=== PATIENT | female | born 1980 | race Caucasian/White ===

== ENCOUNTER 2023-10-14 17:42 | Emergency (ER) | payer MEDICAID, SELFPAY ==
--- NOTE | ~2023-10-14 | XR_ITS ---
EXAMINATION: XR HIP, RIGHT CLINICAL INFORMATION: Right hip pain COMPARISON: None available. TECHNIQUE: Two views of the right hip. 1 view AP pelvis FINDINGS: AP pelvis: There is normal symmetry of bilateral hip joints and SI joints. Rest of the pelvic bones are unremarkable. The soft tissues are normal. Right hip: AP and frog-leg views right hip reveals normal right hip joint space without bony erosive changes, loose bodies or periarticular spurring. Soft tissues are unremarkable. XR/XR hip RT w [id number] IMPRESSION: Unremarkable AP pelvis and right hip exam
[2023-10-14 18:19] VITALS: BP 124/97; PULSE 145; RESP 16; TEMP 37.1; O2SAT 98; BMI 18.9
--- NOTE | 2023-10-14 18:34 | ECG_ITS ---
Test Reason : TACHYCARDIA Blood Pressure : / mmHG Vent. Rate : 143 BPM Atrial Rate : 143 BPM P-R Int : 116 ms QRS Dur : 070 ms QT Int : 282 ms P-R-T Axes : 060 -19 033 degrees QTc Int : 435 ms Sinus tachycardia Otherwise normal ECG No previous ECGs available Referred By: Generic ED Physician Electronically Signed By:MICHELET BILLINGS MD
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
[2023-10-14 19:26] LABS: MANUAL DIFF FLAG NO
[2023-10-14 19:37] LABS: COVID-19 Test Positive (Negative); IDNOW Serial# 08D9AD1C
[2023-10-14 19:42] LABS: Alanine Aminotransferase 21 U/L (0-31); Alkaline Phosphatase 60 U/L (39-117); Anion Gap 17 (12-20); Aspartate Amino Transferase 30 U/L (5-31); Bilirubin Total 0.2 mg/dL (0.0-1.0); Blood Urea Nitrogen 26 mg/dL (9-16); Carbon Dioxide 24 mmol/L (22-29); Chloride 99 mmol/L (96-108); Creatinine Clr Calc Pharmacy 71.1; Estimated Glomerular Filt Rate > 60; Glucose Random 148 mg/dL (60-115); Potassium 3.9 mmol/L (3.3-5.1); Sodium 136 mmol/L (135-145); Total Protein 8.2 g/dL (6.5-8.0)
[2023-10-14 19:43] LABS: Basophils Percent Auto 0.4 % (0-2); Eosinophils Percent Auto 0.3 % (0-4); Hematocrit 36.2 % (37.0-47.0); Hemoglobin 12.6 g/dl (12.0-16.0); Imm Gran Abs Auto 0.03 X10*3/uL (0.00-0.03); Imm Gran Pct Auto 0.3 % (0.0-0.4); Lymphocytes Absolute Auto 0.9 X10*3/uL (1.2-4.9); Lymphocytes Percent Auto 9.8 % (20-40); Mean Corpuscular HGB Conc 34.8 g/dl (31.0-35.0); Mean Corpuscular Hemoglobin 31.7 pg (27.0-33.0); Mean Corpuscular Volume 91.2 fL (80.0-98.0); Mean Platelet Volume 9.1 fL (9.4-12.3); Monocytes Absolute Auto 1.3 X10*3/uL (0.1-1.2); Monocytes Percent Auto 14.3 % (2-11); Neutrophils Absolute Auto 6.8 x10*3/uL (2.0-8.3); Neutrophils Percent Auto 74.9 % (45-73); Platelet Count 288 X10*3/uL (160-400); Red Blood Count 3.97 X10*6/uL (4.20-5.50); Red Cell Distribution Width 13.2 % (11.0-16.0); White Blood Count 9.2 X10*3/uL (4.8-10.8)
[2023-10-14 19:46] LABS: IDNOW Serial# 152EDE1D; IDNOW Serial# 6674DD1D; Influenza A Negative (Negative); Influenza B2 Negative (Negative); Strep A Nucleic Acid Negative (Negative)
[2023-10-14 21:05] VITALS: BP 143/100; PULSE 156; RESP 25; O2SAT 96
[2023-10-14 21:29] LABS: Appearance Urine Clear; Color Urine Yellow; Glucose Urine UA Negative (Negative); Leukocyte Esterase Urine Negative (Negative); Nitrite Urine Negative (Negative); PH 5.5 (5.0-9.0); Specific Gravity - Urine >= 1.030 (1.005-1.025); UMIC TRIGGER UACC YES; Urine Blood Small (1+) (Negative); Urine Ketones 15 mg/dL (Negative); Urine Protein 100 (2+) mg/dL (Neg-Trace)
[2023-10-14] MEDS: LORazepam 1 MG TABLET 2 MG PO (21:51)
[2023-10-14] MEDS: 0.9 % Sodium Chloride 1,000 ML 999 ML IV (21:54)
[2023-10-14 22:09] VITALS: BP 138/93; PULSE 121; RESP 18; O2SAT 100
[2023-10-14 22:24] VITALS: BP 133/96; PULSE 119; RESP 18; O2SAT 100
[2023-10-14 22:40] LABS: Bacteria Urine Trace (None Seen); Hyaline Casts Urine 0-2 /LPF (0-2); RBC Urine 0-2 /HPF (0-2); WBC Urine 0-5 /HPF (0-5)
[2023-10-14 22:47] VITALS: BP 125/92; PULSE 135; RESP 16; TEMP 38.2; O2SAT 98
--- NOTE | 2023-10-14 22:52 | MHC.EDTECH ---
Hourly rounds and vitals completed,patient's temp orally is 100.7, RN and MD aware. Urine obtained and sent to lab. Call shoemaker in reach
--- NOTE | 2023-10-14 22:56 | PC.NURSE ---
IVF still running d/t pt positioning
[2023-10-14 22:59] LABS: Ethanol < 10 mg/dL; Magnesium 1.9 mg/dL (1.6-2.6)
[2023-10-14 23:00] LABS: D Dimer High Sensitivity < 150 NG/ML
[2023-10-14 23:06] LABS: Amphetamine Screen Urine POSITIVE (Not Detect); Barbiturates, Urine Not Detected (Not Detect); Benzodiazepines Screen Urine Not Detected (Not Detect); Cannabinoid Screen Urine POSITIVE (Not Detect); Cocaine Screen Urine Not Detected (Not Detect); Fentanyl, urine Not Detected (Not Detect); Opiate Screen Urine Not Detected (Not Detect); Phencyclidine Screen Urine Not Detected (Not Detect)
[2023-10-14 23:13] LABS: TSH reflex Free T4 1.71 uIU/mL (0.32-4.0)
[2023-10-14] MEDS: Ibuprofen 600 MG TABLET PO (23:25)
[2023-10-14 23:32] LABS: Troponin-I High Sensitivity < 2.7 ng/L (<3.5-17.0)
[2023-10-14 23:41] VITALS: BP 128/82; PULSE 138; RESP 18; TEMP 37.9; O2SAT 100
--- NOTE | 2023-10-14 23:45 | MHC.EDTECH ---
Hourly rounds and vitals completed, patient,s temp orally is 100.2,HR is 138 Md and RN aware. Call shoemaker in reach
[2023-10-15] MEDS: LORazepam 1 MG TABLET 2 MG PO (00:01)
[2023-10-15 01:49] VITALS: BP 110/64; PULSE 112; RESP 16; TEMP 37.7; O2SAT 100
--- NOTE | 2023-10-15 02:20 | MHC.EDTECH ---
Hourly rounds and vitals completed, patient is resting comfortably at this time and call shoemaker in reach
--- NOTE | 2023-10-15 04:27 | MHC.EDTECH ---
Hourly rounds completed, patient is sleeping,resp. rate WNL.Call shoemaker at reach
[2023-10-15 05:59] VITALS: BP 102/66; PULSE 101; RESP 16; TEMP 36.8
--- NOTE | 2023-10-15 08:16 | PC.NURSE ---
Patient with extreme flight of ideas , difficult to re-direct. Speaking rapidly [place] mothers [place], her adhd and frostbite. At times with delusional thoughts. Sinus tachy on monitor.
[2023-10-15 08:20] VITALS: BP 112/72; PULSE 114; RESP 18; O2SAT 98
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
--- NOTE | 2023-10-15 09:34 | PC.NURSE ---
Patient rang call sahara, upon entering room patient stated she had removed her iud. Reached into bra and pulled out a napkin with her IUD in it. Patient reports thought it was her tampon and pulled it out. Provider aware
[2023-10-15] MEDS: Ibuprofen 800 MG TABLET PO (10:38)
--- NOTE | 2023-10-15 10:39 | PC.NURSE ---
medicated per mar, patient calmer resting in bed with eyes closed
--- NOTE | 2023-10-15 11:12 | PHA.MEDREC ---
Pharmacy Consult ? Medication Reconciliation Pharmacy has completed the medication reconciliation. Reviewed med rec done by nursing (Antion[facility]).
[2023-10-15 14:00] VITALS: BP 150/112; PULSE 112; RESP 18; O2SAT 97
[2023-10-15] MEDS: Gabapentin 300 MG CAPSULE PO ×2 (15:39→22:14)
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
[2023-10-15] MEDS: Ibuprofen 600 MG TABLET PO (18:01)
--- NOTE | 2023-10-15 19:05 | PC.NURSE ---
Seen by care team
[2023-10-15 21:37] VITALS: BP 158/106; PULSE 133; RESP 24; TEMP 36.6; O2SAT 98
[2023-10-15] MEDS: Acetaminophen 325 MG TABLET 650 MG PO (22:13)
--- NOTE | 2023-10-15 22:29 | PC.NURSE ---
Pt requested additional dose of Ibuprofen for generalized BLE pain. Acetaminophen ordered - too soon for additional Ibuprofen. Administered along with nighttime medication - pt refused Zyprexa per notes.
[2023-10-16] MEDS: Ibuprofen 600 MG TABLET PO ×4 (01:45→22:53)
[2023-10-16] MEDS: clonazePAM 0.5 MG TABLET PO (01:46)
[2023-10-16 06:10] VITALS: BP 118/81; PULSE 105; RESP 20; O2SAT 100
[2023-10-16] MEDS: Multivitamin TABLET 1 TAB PO (07:18)
[2023-10-16] MEDS: Gabapentin 300 MG CAPSULE PO ×3 (07:18→22:53)
[2023-10-16 07:20] VITALS: BP 142/102; PULSE 116; RESP 18; TEMP 36.6; O2SAT 99
[2023-10-16 15:13] VITALS: BP 149/70; PULSE 112; RESP 15; TEMP 36.6; O2SAT 95
[2023-10-16 18:47] VITALS: BP 137/86; PULSE 104; RESP 18; TEMP 36.9; O2SAT 100
[2023-10-16] MEDS: OLANZapine 10 MG TABLET PO (22:53)
--- NOTE | 2023-10-16 23:10 | PC.NURSE ---
care assumed of patient at this time.
[2023-10-16 23:23] LABS: COVID-19 Test Positive (Negative); IDNOW Serial# 08D9AD1C
--- NOTE | 2023-10-17 05:26 | PC.NURSE ---
care assumed of this patient at approx 2300 - pt asleep at this time after receiving ibuprofen from previous RN. resps are even and unlabored. no apparent distress noted. observer is within view of patient.
[2023-10-17 06:32] VITALS: BP 138/88; PULSE 116; RESP 18; TEMP 36.8; O2SAT 100
[2023-10-17] MEDS: Ibuprofen 600 MG TABLET PO (06:34)
[2023-10-17] MEDS: Multivitamin TABLET 1 TAB PO (08:11)
[2023-10-17] MEDS: Gabapentin 300 MG CAPSULE PO ×3 (08:11→22:11)
--- NOTE | 2023-10-17 08:54 | MHC.CM.ED ---
Addendum entered by Flor Greco 10/17/23 14:21: Leg pain reported by nursing. Physical therapy eval ordered for home safety eval. Addendum entered by Flor Greco 10/17/23 11:40: Referral broadcasted throughout the [facility] to all facilities contracted with [facility]. 212 referrals made. Original Note: Received case management consult over the weekend. Patient came to the ER on 10/14 for multiple complaints. Patient has an extensive mental health history. Patient found to be positive for Covid on 10/14. Patient is living with a friend at this time. Patient is unable to return to this home until she is Covid recovered. At this time, the only safe discharge plan appears to be a residential facility under [facility] [place] [facility] care until patient is Covid recovered and can safely return to her home. Continue to monitor for d/c needs.
--- NOTE | 2023-10-17 09:33 | PC.NURSE ---
Addendum entered by Luz Elena Dow RN 10/17/23 13:57: 1:1 sitter is not for this pt, for others around pt. entered in error. Original Note: assumed care of pt at 0700. pt a&o x4, talkative, cooperative. pt tends to get off topic quite easily. has multiple complaints, especially from past care prior to arriving to [facility]. pt would like to have a full body scan or a right hip x-ray at least due to the pain. pt also reporting BL toe neuropathy pain from frostbite from a few years ago. pt asked and provided with a cup of coffee. 1:1 sitter at bedside. plan of care ongoing.
[2023-10-17] MEDS: Ibuprofen 800 MG TABLET PO (10:26)
[2023-10-17] MEDS: Acetaminophen 325 MG TABLET 975 MG PO (10:26)
[2023-10-17] MEDS: Throat Lozenge, Medicated LOZENGE 1 LOZENGE MUCOUS MEM (13:44)
--- NOTE | 2023-10-17 13:54 | PC.NURSE ---
pt speech and thoughts very disorganized. pt sts no one is available to bring her Vyvance. Merari, pharmacist going to order adderal for pt as pt has taken it in the past. pt also brought a commode as it is too painful on pt's right hip. pt given ice cream, kinyarwanda ice, and cepacol (per dec) for sore throat. pt describing pain as knives in her throat. pt otherwise resting quietly on stretcher watching tv. plan of care ongoing.
[2023-10-17] MEDS: Amphetamine Mixed Salts 10 MG TABLET PO (16:13)
[2023-10-17 16:15] VITALS: BP 125/94; PULSE 102; RESP 16; TEMP 36.8; O2SAT 100
--- NOTE | 2023-10-17 18:46 | PC.NURSE ---
bed linens changed and pt given new hospital gown. pt resting HR 85, however elevates when pt starts talking or gets out of bed. when pt got out of bed for the bed change, HR elevated to 145. HR currently back down to 79.
[2023-10-17 19:56] VITALS: BP 127/92; PULSE 98; RESP 21; TEMP 36.8; O2SAT 100
[2023-10-17] MEDS: OLANZapine 10 MG TABLET PO (22:11)
--- NOTE | 2023-10-17 22:45 | PC.NURSE ---
pt resting comfortably with eyes closed. breathing even and unlabored.no apparent distress at this time. call sahara w/in reach.
[2023-10-18 01:04] VITALS: BP 135/101; PULSE 98; RESP 20; TEMP 36.6; O2SAT 100
[2023-10-18] MEDS: Ibuprofen 600 MG TABLET PO ×3 (01:07→21:16)
--- NOTE | 2023-10-18 01:15 | PC.NURSE ---
pt c/o sore throat. medicated per DEC.
--- NOTE | 2023-10-18 02:28 | PC.NURSE ---
pt resting comfortably with eyes closed at this time. no distress noted, call shoemaker w/in reach
--- NOTE | 2023-10-18 08:01 | PC.NURSE ---
pt a+o x3. pt c/o not getting meals since being here. pt was given breakfast and fresh ice water in new pitcher by lease attendant this morning, this RN present.
[2023-10-18 08:35] VITALS: BP 122/76; PULSE 102; RESP 14; O2SAT 100
[2023-10-18] MEDS: Multivitamin TABLET 1 TAB PO (08:58)
[2023-10-18] MEDS: Gabapentin 300 MG CAPSULE PO ×3 (08:58→21:16)
--- NOTE | 2023-10-18 11:36 | PC.NURSE ---
LATE ENTRY: 0900 - pt reported chronic 15/10 full body ache. Ibuprofen given along with morning meds as documented.
[2023-10-18] MEDS: Acetaminophen 325 MG TABLET 650 MG PO ×2 (11:48→21:17)
--- NOTE | 2023-10-18 11:57 | PC.NURSE ---
assumed care of pt at 1100, pt resting quietly, reporting cont'd h/a and body aches, medicated per MAR. a&ox4, pt speech and thought very disorganized/tangential, vss. precautions remain in place.
[2023-10-18 14:17] VITALS: BP 134/89; PULSE 91; RESP 14; O2SAT 100
--- NOTE | 2023-10-18 15:37 | HE.PHANOTE ---
Patient received one time dose of Adderall 10 mg yesterday to replace home medication Vyvanse. Order changed from one dose to a daily medications, per RAHAT Man. Merari Isabel, ЕкатеринаD
[2023-10-18] MEDS: Amphetamine Mixed Salts 10 MG TABLET PO (16:33)
--- NOTE | 2023-10-18 16:36 | PC.NURSE ---
pt medicated per MAR.
[2023-10-18 20:23] VITALS: BP 138/88; PULSE 111; RESP 18; TEMP 36.7; O2SAT 100
[2023-10-18] MEDS: OLANZapine 10 MG TABLET PO (21:16)
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
--- NOTE | 2023-10-19 00:57 | PC.NURSE ---
Took over care at 2300, pt is sleeping this time, no sign of distress.
[2023-10-19 02:11] VITALS: BP 90/63; PULSE 86; RESP 17; TEMP 36.7; O2SAT 97
--- NOTE | 2023-10-19 05:26 | PC.NURSE ---
no sign of respiratory distress, pt sleeping most of the evening.
[2023-10-19 06:27] VITALS: BP 97/64; PULSE 69; RESP 17; TEMP 36.8; O2SAT 100
--- NOTE | 2023-10-19 06:39 | PC.NURSE ---
pt a&o, no respiratory distress, pt able to speak in full sentences.
[2023-10-19] MEDS: Multivitamin TABLET 1 TAB PO (08:48)
[2023-10-19] MEDS: Gabapentin 300 MG CAPSULE PO ×3 (08:48→21:48)
[2023-10-19] MEDS: Amphetamine Mixed Salts 10 MG TABLET PO (08:48)
--- NOTE | 2023-10-19 08:51 | PC.NURSE ---
patient sitting up in bed, respirations equal and unlabored. patient shows no signs of distress, has pressured speech. medicated per MAR
[2023-10-19 10:05] LABS: COVID-19 Test Positive (Negative); IDNOW Serial# 152EDE1D
[2023-10-19 10:19] VITALS: BP 110/75; PULSE 93; RESP 13; O2SAT 100
[2023-10-19] MEDS: Ibuprofen 600 MG TABLET PO ×2 (13:45→21:53)
--- NOTE | 2023-10-19 13:55 | MHC.CM.ED ---
Patient remains in ER. Reepeat Covid swab is positive. Met with patient in collaboration with Oxana [facility] Care Team. Current discharge options are: Voluntary inpatient psych, Respite, [facility] facility anywhere in the [facility], or patient securing a hotel. Patient will think about her options. T/W will re-meet with patient in 1 hour. Continue to monitor for d/c needs.
--- NOTE | 2023-10-19 14:13 | PC.NURSE ---
patient sitting up in bed, utilized PRN ibuprofen for headache. respirations equal and unlabored
--- NOTE | 2023-10-19 15:27 | MHC.CM.ED ---
Met with patient and Oxana from Care Team again. Patient not interested in inpatient psych, respite or fci facility. Patient would be interested in placement with [facility] in [place] or possibly staying at the [facility] in [place]. T/W left a message for Nora with [facility]. Waiting for a call back. Oxana will speak to the [facility]. Continue to monitor for d/c needs.
[2023-10-19 15:39] VITALS: BP 114/82; PULSE 84; RESP 20; TEMP 36.6; O2SAT 100
[2023-10-19] MEDS: Acetaminophen 325 MG TABLET 650 MG PO (15:41)
--- NOTE | 2023-10-19 21:40 | MHC.CARE ---
Pt was referred to [facility], tw faxed assessment to [facility], referral under review please follow up tomorrow
[2023-10-19] MEDS: OLANZapine 10 MG TABLET PO (21:48)
--- NOTE | 2023-10-20 01:00 | PC.NURSE ---
PT arrived from main ED via wheelchair. PT alert and oriented. speech noted to be pressured. PT discussing many different topics in a short time period. PT ensdoring right leg and hip pain. PT medicated as per MAR. Plan of care ongoing.
[2023-10-20 01:26] VITALS: BP 138/97; PULSE 100; RESP 18; TEMP 37.1; O2SAT 99
[2023-10-20] MEDS: Acetaminophen 325 MG TABLET 650 MG PO ×2 (01:47→15:08)
[2023-10-20 06:00] VITALS: BP 109/71; PULSE 91; RESP 18; TEMP 36.7; O2SAT 97
--- NOTE | 2023-10-20 08:56 | MHC.CARE ---
Pt referred to [facility] on 10/20/23, referral activated and under review this morning 10/20/23.
[2023-10-20] MEDS: Amphetamine Mixed Salts 10 MG TABLET PO (09:07)
[2023-10-20] MEDS: Gabapentin 300 MG CAPSULE PO ×2 (09:07→15:08)
[2023-10-20] MEDS: Multivitamin TABLET 1 TAB PO (09:07)
--- NOTE | 2023-10-20 09:26 | MHC.CM.ED ---
Patient remains in ER overflow. T/W spoke with Pau at [employer]. Patient is well known to their agency. Pau has to speak to her fiberglass boat assembly supervisor to see if they would be able to help patient with a motel for a couple of days. Pau will contact after speaking with her fiberglass boat assembly supervisor. Continue to monitor for d/c needs.
--- NOTE | 2023-10-20 11:21 | MHC.CARE ---
Call from Natan at [facility], patient accepted to [facility] [address] for 4 pm today. Has to bring her medications, belongings and must wear a mask.
--- NOTE | 2023-10-20 11:40 | PC.NURSE ---
patient a&ox3, independent in room, covid precautions in place, denies pain/discomfort, pt to discharge later this afternoon per case management, call shoemaker within reach, will continue to monitor
--- NOTE | 2023-10-20 11:51 | MHC.CARE ---
Pt was accepted to [facility] ,however she declined bed. [facility] was called and notified.
[2023-10-20] MEDS: Ibuprofen 600 MG TABLET PO (11:57)
--- NOTE | 2023-10-20 11:58 | MHC.CM.ED ---
Received return telephone call from Pau at [facility]. They would be able to offer 2 nights at the [facility] in [place] or the [facility] in [place]. Met with patient and Oxana from the Care Team. Patient will accept 2 nights at the [facility]. T/W left a message for Pau relaying this information. Continue to monitor for d/c needs.
--- NOTE | 2023-10-20 12:04 | PC.NURSE ---
upon bringing lunch into patient, pt decided she did have 10/10 pain in various areas of her body, pt was medicated with ibuprofen for generalized pain.
[2023-10-20 14:00] VITALS: BP 114/69; PULSE 89; RESP 16; TEMP 37.2; O2SAT 98
--- NOTE | 2023-10-20 15:09 | PC.NURSE ---
patient medicated per order, pt requesting pain meds for generalized pain, pt medicated with tylenol
--- NOTE | 2023-10-20 15:25 | MHC.CM.ED ---
Addendum entered by Flor Greco 10/20/23 15:35: Per Pau at [employer] room at [facility] has been prepaid for patient. T/W attempted to verify this with [facility] at [phone]. No answer. Left voicemail requesting return telephone call. Original Note: Met with patient and Oxana from Care Team. Patient agreeable to d/c to [facility], 2 nights paid for my [employer]. Naima GIANG requested to send home meds: gabapentin, adhd med and zyprexa, to [facility]aram because patient does not have any of her meds. Naima GIANG sent meds. [facility] pharamcy asked to bring meds to patient when filled. Aris booked for 5pm. Patient, Oxana WHITE and Naima GIANG aware. Continue to monitor for d/c needs.
--- NOTE | 2023-10-20 16:21 | PC.NURSE ---
per case management, pt to discharge with emmanuel ride to [facility], pt initially had scripts called into the [facility] pharmacy. pharmacy came to overflow stating that they are unable to fill these scripts as the patient recently had all of these medications filled. upon speaking with the patient, she stated she did have them filled but they are at a friends house that is immunocompromised and she is unable to get them while still covid positive. The patient became distraught that she is unable to have her medication and is being kicked out of the hospital without medications. This nurse conversed with the patient about possibly having her medications dropped off to her while at the [facility], pt states that she is unable to do so and continues to be upset. The patient has been told that she needs to be dressed and ready for discharge via lyft and per case management there is no other options to explore at this time. The patient is reluctantly getting ready to discharge.
== END 2023-10-20 16:42 | disposition home or self-care (01) ==
PROVIDERS: Physician Assistant; Emergency Provider Emergency Medicine; PCP Nurse Practitioner
DX: F43.10 Post-traumatic stress disorder, unspecified (principal); R45.1 Restlessness and agitation; F41.9 Anxiety disorder, unspecified; U07.1 COVID-19; R50.9 Fever, unspecified; R00.0 Tachycardia, unspecified; R06.02 Shortness of breath; R26.81 Unsteadiness on feet; Z79.899 Other long term (current) drug therapy
CPT/HCPCS: 36415; 73502; 80053; 80307; 81001; 83735; 84443; 84484; 85025; 85379; 87502; 87635; 87651; 93005; 96360; 97162; 99285; S9485

== ENCOUNTER → 2023-10-14 18:34 | Outpatient (BNV) | payer MEDICAID, SELFPAY | PROVIDERS: Emergency Provider Emergency Medicine; PCP Nurse Practitioner; Visit Provider Internal Medicine Cardiovascular Disease | DX: R00.0 Tachycardia, unspecified (principal) | CPT/HCPCS: 93010 ==

== ENCOUNTER 2023-12-18 22:39 | Emergency (ER) | payer MEDICAID, SELFPAY ==
[2023-12-18 22:57] VITALS: BP 113/66; BP 132/84; PULSE 106; PULSE 117; RESP 20; TEMP 36.8; O2SAT 94; O2SAT 96; BMI 21.0
[2023-12-19 00:31] LABS: Appearance Urine Clear; Color Urine Yellow; Glucose Urine UA Negative (Negative); Leukocyte Esterase Urine Negative (Negative); Nitrite Urine Negative (Negative); PH 5.5 (5.0-9.0); Specific Gravity - Urine <= 1.005 (1.005-1.025); Urine Blood Negative (Negative); Urine Ketones Negative (Negative); Urine Protein Negative (Neg-Trace)
[2023-12-19 00:33] LABS: UPreg QC Valid YES; Urine Pregnancy NEGATIVE (NEGATIVE)
[2023-12-19 00:40] LABS: Amphetamine Screen Urine Not Detected (Not Detect); Barbiturates, Urine Not Detected (Not Detect); Benzodiazepines Screen Urine Not Detected (Not Detect); Cannabinoid Screen Urine POSITIVE (Not Detect); Cocaine Screen Urine Not Detected (Not Detect); Fentanyl, urine Not Detected (Not Detect); Opiate Screen Urine Not Detected (Not Detect); Phencyclidine Screen Urine Not Detected (Not Detect)
[2023-12-19 01:12] VITALS: BP 113/62; PULSE 112; RESP 17; TEMP 36.9; O2SAT 94
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
[2023-12-19 02:12] LABS: MANUAL DIFF FLAG NO
[2023-12-19 02:15] LABS: Basophils Percent Auto 0.3 % (0-2); Eosinophils Percent Auto 0.4 % (0-4); Hematocrit 31.5 % (37.0-47.0); Hemoglobin 10.9 g/dl (12.0-16.0); Imm Gran Abs Auto 0.02 X10*3/uL (0.00-0.03); Imm Gran Pct Auto 0.2 % (0.0-0.4); Lymphocytes Absolute Auto 2.2 X10*3/uL (1.2-4.9); Lymphocytes Percent Auto 21.4 % (20-40); Mean Corpuscular HGB Conc 34.6 g/dl (31.0-35.0); Mean Corpuscular Hemoglobin 30.9 pg (27.0-33.0); Mean Corpuscular Volume 89.2 fL (80.0-98.0); Monocytes Absolute Auto 0.6 X10*3/uL (0.1-1.2); Monocytes Percent Auto 5.6 % (2-11); Neutrophils Absolute Auto 7.3 x10*3/uL (2.0-8.3); Neutrophils Percent Auto 72.1 % (45-73); Platelet Count 274 X10*3/uL (160-400); Red Blood Count 3.53 X10*6/uL (4.20-5.50); Red Cell Distribution Width 13.2 % (11.0-16.0); White Blood Count 10.2 X10*3/uL (4.8-10.8)
[2023-12-19 02:26] LABS: Anion Gap 15 (12-20); Blood Urea Nitrogen 13 mg/dL (9-16); Calcium 8.2 mg/dL (8.4-10.2); Carbon Dioxide 21 mmol/L (22-29); Chloride 109 mmol/L (96-108); Creatinine Clr Calc Pharmacy 88.3; Estimated Glomerular Filt Rate > 60; Ethanol 131 mg/dL; Glucose Random 100 mg/dL (60-115); Potassium 3.4 mmol/L (3.3-5.1); Sodium 142 mmol/L (135-145)
[2023-12-19 02:29] LABS: COVID-19 Test Negative (Negative); IDNOW Serial# 6674DD1D
[2023-12-19 05:03] VITALS: BP 126/77; PULSE 78; RESP 20; TEMP 37.1; O2SAT 99
[2023-12-19 08:18] VITALS: BP 120/96; PULSE 77; RESP 14; O2SAT 98
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
--- NOTE | 2023-12-19 08:38 | PC.NURSE ---
CARE team at bedside
[2023-12-19] MEDS: Ibuprofen 600 MG TABLET PO (09:27)
--- NOTE | 2023-12-19 09:28 | MHC.CARE ---
Pt seen by CARE team, patient does not meet inpatient level of care nor is she seeking psychiatric treatment currently. Pt is requesting STR due to her multiple medical issues and difficulty walking as she uses a walker to ambulate. Pt referred to hospital case management.
--- NOTE | 2023-12-19 10:48 | PC.NURSE ---
Pharmacy asked for assistance with med rec.
--- NOTE | 2023-12-19 12:08 | PC.NURSE ---
Awaiting case management dispo to assist with longterm placement
[2023-12-19 12:45] VITALS: BP 121/81; PULSE 94; RESP 18; TEMP 36.6; O2SAT 97
[2023-12-19] MEDS: Gabapentin 300 MG CAPSULE PO (12:47)
[2023-12-19 15:36] VITALS: BP 95/58; PULSE 85; RESP 18; TEMP 36.6; O2SAT 98
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
--- NOTE | 2023-12-19 18:02 | PC.NURSE ---
pharmacy reminded of med rec needs, plan for pt to await here for case management assistance with placement to half-way tomorrow.
[2023-12-19 22:00] VITALS: RESP 16
[2023-12-20 02:39] VITALS: BP 125/87; PULSE 90; RESP 18; TEMP 36.7; O2SAT 98
[2023-12-20] MEDS: Ketorolac Tromethamine 60 MG/2 ML VIAL IM (03:47)
--- NOTE | 2023-12-20 07:45 | PC.NURSE ---
pt is currently asleep, respirations even and unlabored, in no apparent distress at this time
[2023-12-20 07:49] VITALS: BP 101/65; PULSE 100; RESP 18; TEMP 36.7; O2SAT 98
--- NOTE | 2023-12-20 08:59 | MHC.CM.PN ---
Addendum entered by Kathia Das 12/20/23 09:18: Call placed to the [facility], they state they have an available female long-term bed and are requesting pt to call them at [phone] to complete intake. ED CM to facilitate pt call to [facility]. Addendum entered by Kathia Das 12/20/23 09:10: Call placed to the [facility], they request we call back at 9:30am. Original Note: This CM called [facility] was told to call back at 10:30am to inquire about available long-term beds. Call placed to [facility], message left. Call placed to [facility] (for pop up [facility] long-term), message left. Call placed to [facility], they are able to do a statewide bed search, they state there is 1 available female long-term bed at the [facility]. Call placed to [facility], they took pts information and said they would call us back this afternoon to let us know if they have a bed for her.
--- NOTE | 2023-12-20 09:30 | PC.NURSE ---
pt calling a custodial for an intake pt is asking about her medications especially gabapentin
--- NOTE | 2023-12-20 10:47 | PC.NURSE ---
called pharmacy and they will be doing her med rec
--- NOTE | 2023-12-20 10:48 | MHC.CM.PN ---
Call placed to [facility] to follow up, they state they will call us back to let us know if they can take pt today. Call placed to [facility], to follow up, they state they do not have a follow up bed. Call placed to [facility] to follow up, unable to reach anyone x 3 calls. Call placed to [facility], they do not have an available female bed today. Call placed to [facility] to follow up, unable to reach anyone x 3 calls.
--- NOTE | 2023-12-20 10:54 | MHC.CM.PN ---
Addendum entered by Kathia [place] 12/20/23 13:25: Call placed to [facility], they do not have an available usp female bed. Call placed to [facility] in [place], they do not have an available female usp bed. Addendum entered by Kathia [place] 12/20/23 13:20: Call placed to [facility] to do intake with pt, they now state they do not have an available bed. Addendum entered by Kathia [place] 12/20/23 11:05: Call placed to [facility], they do not currently have an available female bed, but they state the pt can call them tomorrow morning at 9am at [phone] to be added to a wait list (which they state is currently short). Original Note: Call placed to [facility] to follow up, they state they will call us back to let us know if they can take pt today. Call placed to [facility], to follow up, they state they do not have a available female bed. Call placed to [facility] to follow up, unable to reach anyone x 3 calls. Call placed to [facility], they do not have an available female bed today. Call placed to [facility] to follow up, unable to reach anyone x 3 calls.
--- NOTE | 2023-12-20 11:38 | PHA.MEDREC ---
Pharmacy Consult ? Medication Reconciliation Pharmacy has completed the medication reconciliation. Spoke to patient who knew medications. Cant bring benito in from home but wanted adderal ir instead as it worked for her last time she was here
[2023-12-20 12:41] VITALS: BP 127/80; PULSE 87; RESP 17; TEMP 36.8; O2SAT 100
[2023-12-20] MEDS: hydrOXYzine HCL 50 MG TABLET 100 MG PO ×2 (14:37→20:02)
[2023-12-20] MEDS: Gabapentin 300 MG CAPSULE 600 MG PO ×2 (14:37→20:02)
--- NOTE | 2023-12-20 15:02 | PC.NURSE ---
assumed care of pt at 1100. pt a&o, calm, and cooperative. resting quietly on stretcher in no apparent distress. medicated per dec. pt met with CM. per CM, referrals made for rehab for pt back, and pt is working on getting money for a hotel room . rr even/unlabored. plan of care ongoing.
--- NOTE | 2023-12-20 15:55 | MHC.CM.PN ---
PT AWARE LONG-TERM SEARCH HAS BEEN EXHASUSTED SHE REPORTS MULTIPLE TIMES SHE IS UNABLE TO AMBULATE REFERRALS MADE FOR STR, AWAITING RESPONSES PT ALSO WORKING TO FIND MONEY FOR A HOTEL IF SHE CANNOT GET INTO STR, SHE WILL NEED TO GO TO THE [facility] WHERE THEY DO NOT REQUIRE ID SHE WILL NEED TRANSPORT ARRANGED VIA LYFT
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
[2023-12-20] MEDS: Ibuprofen 400 MG TABLET PO (18:42)
[2023-12-20] MEDS: Acetaminophen 325 MG TABLET 650 MG PO (18:42)
--- NOTE | 2023-12-20 19:27 | PC.NURSE ---
patient appears to remain at rest at present respirations are even and unlabored patient appears in no distress
[2023-12-20] MEDS: busPIRone HCl 5 MG TABLET PO (20:02)
[2023-12-20 20:07] VITALS: BP 127/68; PULSE 90; RESP 20; TEMP 36.7; O2SAT 99
--- NOTE | 2023-12-20 20:25 | PC.NURSE ---
client presents with pressured speech asks about vyvanse, will let am nurse know [employer] should address an equivalent in am. also, allegedly client has no ID and its unclear if whatever med we have her on requires an ID to pickup (pretty sure vyvanse does not but others may)
[2023-12-21 06:08] VITALS: BP 120/77; PULSE 110; RESP 18; TEMP 36.5; O2SAT 100
--- NOTE | 2023-12-21 06:59 | PC.NURSE ---
Assumed care of patient at 0645, patient appears to be sleeping, respirations even and unlabored, no apparent distress noted. Continue plan of care for CM follow up for group home bed
[2023-12-21] MEDS: hydrOXYzine HCL 50 MG TABLET 100 MG PO ×3 (08:34→20:37)
[2023-12-21] MEDS: Gabapentin 300 MG CAPSULE 600 MG PO ×3 (08:34→20:37)
[2023-12-21] MEDS: busPIRone HCl 5 MG TABLET PO ×2 (08:34→20:37)
[2023-12-21] MEDS: Multivitamin TABLET 1 TAB PO (08:34)
--- NOTE | 2023-12-21 08:56 | MHC.CM.ED ---
Addendum entered by Flor Greco 12/21/23 11:55: Level 2 obtained. MDS completed and faxed to [facility]. Original Note: Patient remains in ER. Patient is homeless. recreational facilities motel manager was trying to get patient into a alf. However, patient is having difficulty ambulating d/t back pain. Will need senior living placement so that back pain and mobility can be safely managed and assessed. [facility]. Patient accepts this bed. Patient will need [facility] PAS[facility] Level 2. T/W has already submitted for this. Patient will also need MDS completed and sent to [facility]. Continue to monitor for d/c needs.
[2023-12-21] MEDS: Acetaminophen 325 MG TABLET 650 MG PO ×2 (11:59→18:29)
[2023-12-21] MEDS: Ibuprofen 400 MG TABLET PO (11:59)
--- NOTE | 2023-12-21 19:16 | PC.NURSE ---
patient appears to remain at rest at present respiraiotns are even and unlabored patient appears in no distress.
[2023-12-21 19:27] VITALS: BP 119/83; PULSE 98; RESP 18; TEMP 36.6; O2SAT 100
[2023-12-22 00:12] VITALS: BP 115/87; PULSE 104; RESP 20; O2SAT 98
[2023-12-22 08:14] VITALS: BP 101/78; PULSE 98; RESP 16; TEMP 37.2; O2SAT 100
[2023-12-22] MEDS: Gabapentin 300 MG CAPSULE 600 MG PO ×2 (09:02→15:11)
[2023-12-22] MEDS: busPIRone HCl 5 MG TABLET PO (09:02)
[2023-12-22] MEDS: hydrOXYzine HCL 50 MG TABLET 100 MG PO ×2 (09:02→15:11)
--- NOTE | 2023-12-22 10:36 | PC.NURSE ---
Addendum entered by Iva Rocha 12/22/23 10:37: continues to ambulate independently utilizing walker with steady gait. Original Note: remains a case management patient w/ potential transfer to a rehab today
--- NOTE | 2023-12-22 11:45 | MHC.CM.ED ---
Patient will d/c to [facility] today at 4pm. Dalia MCGINNIS booked. Med nec with chart. Patient, Iva WHITE and Dr Alcantara aware. Continue to monitor for d/c needs.
[2023-12-22] MEDS: Ibuprofen 400 MG TABLET PO (11:50)
[2023-12-22] MEDS: Acetaminophen 325 MG TABLET 650 MG PO (11:50)
--- NOTE | 2023-12-22 12:32 | PC.NURSE ---
attempted to call report to short term rehab unsuccessfully - will attempt again prior to discharge
[2023-12-22 14:49] VITALS: BP 137/71; PULSE 93; RESP 14; TEMP 37.3; O2SAT 99
--- NOTE | 2023-12-22 15:29 | PC.NURSE ---
able to provide patient demographics to snf prior to losing phone connection. patient aware of discharge, continues to discuss her adhd medications and her concerns surrounding being unable to access them. made aware that nothing is definite concerning the ability to access the medications and that she may not be able to even when she is at the short term rehab. patient aware of this information and states she will try to get ahold of her primary care provider tomorrow.
[2023-12-22 17:47] VITALS: BP 137/71; PULSE 93; RESP 14; TEMP 37.3; O2SAT 99
== END 2023-12-22 17:48 ==
PROVIDERS: Emergency Provider Student in an Organized Health Care Education/Training Program
DX: F29 Unspecified psychosis not due to a substance or known physiological condition (principal); F43.10 Post-traumatic stress disorder, unspecified; Z11.52 Encounter for screening for COVID-19
CPT/HCPCS: 36415; 80048; 80307; 81003; 81025; 85025; 87635; 96372; 97162; 99285; J1885; S9485